=== PATIENT | male | born 1980 | race Hispanic/Latino ===

== ENCOUNTER 2017-08-17 01:14 | Emergency (ER) | payer OTHER ==
[2017-08-17] MEDS ORDERED: HYDROcodone/Acetaminophen 5/325 mg Tablet ONE (02:25)
[2017-08-17] MEDS ORDERED: Dexamethasone 10 MG/ML VIAL ONE (02:25)
== END 2017-08-17 03:00 | disposition home or self-care (01) ==
LOC: ERS 01:14
DX: M10.9 Gout, unspecified (principal); I10 Essential (primary) hypertension; Z79.891 Long term (current) use of opiate analgesic; Z79.899 Other long term (current) drug therapy
CPT/HCPCS: 96372; J1100

== ENCOUNTER 2017-09-05 09:57 | Outpatient (CLI) | payer OTHER ==
--- NOTE | 2017-09-05 12:13 | RAD ---
BARIUM SWALLOW: HISTORY: Dysphagia and gastroesophageal reflux disease. COMPARISON: None. EXPOSURE: Fluoroscopic time 2.9 minutes with 1700.4 mGy per m2. FINDINGS: A double contrast barium swallow was performed. Esophageal motility was normal. No structures were seen. No extrinsic compression on the esophagus was seen. A barium tablet passed without difficulty into the stomach. No gastroesophageal reflux was seen during the examination. IMPRESSION: Unremarkable barium swallow. POS: [facility]
== END 2017-09-05 09:58 | disposition home or self-care (01) ==
LOC: RAD 09:57
PROVIDERS: ATTEND Internal Medicine Gastroenterology
DX: K21.9 Gastro-esophageal reflux disease without esophagitis (principal); E80.4 Gilbert syndrome; R13.10 Dysphagia, unspecified
CPT/HCPCS: 74220

== ENCOUNTER 2018-04-16 09:07 | Outpatient (CLI) | payer BC ==
--- NOTE | 2018-04-16 11:25 | CT ---
CT CHEST WITH IV CONTRAST: HISTORY: Myasthenia gravis. Dysphagia. FINDINGS: No focal parenchymal lung mass, infiltrate, pleural fluid, or mediastinal adenopathy. The visualized portions of the esophagus are unremarkable. No evidence of thymic abnormality. Within the partiall y visualized upper abdomen, multiple cysts involve the partially visualized kidneys. IMPRESSION: 1. No significant abnormalities of the chest demonstrated. 2. Bilateral extensive renal cysts. POS: [facility]
[2018-04-16] MEDS ORDERED: Iopamidol 370 76% 100 ML VIAL ONE (14:48)
== END 2018-04-16 09:08 | disposition home or self-care (01) ==
LOC: CT 09:07
PROVIDERS: ATTEND Psychiatry & Neurology Neurology
DX: G70.00 Myasthenia gravis without (acute) exacerbation (principal); N28.1 Cyst of kidney, acquired
CPT/HCPCS: 36415; 71260; 83516

== ENCOUNTER 2018-10-08 13:40 | Outpatient (CLI) | payer BC ==
--- NOTE | 2018-10-08 15:05 | ULT ---
SCROTAL ULTRASOUND: INDICATIONS: A 38-year-old with testicular pain. COMPARISON: Prior exam dated 10/06/2015. TECHNIQUE: Mata-scale and color Doppler with spectral Doppler images were obtained of the scrotum. FINDINGS: No intratesticular mass or torsion is demonstrated. The right testicle measure 4.9 x 3.4 x 2.6 cm. T he left testicle measures 4.9 x 3.2 x 2.3 cm. There is normal vascular flow to both testicles. Ther e is some old right hydrocele. There is a 2 mm right epididymal head cyst present. A very tiny left hydrocele is present. IMPRESSION: 1. No intratesticular mass or torsion demonstrated. 2. Small, nonspecific bilateral hydroceles, right greater than left. 3. Small right epididymal head cyst. POS: [facility]
--- NOTE | 2018-10-08 15:44 | ULT ---
RENAL ULTRASOUND: 10/08/18 HISTORY: Polycystic kidneys. COMPARISON: 11/12/15 study. Real time imaging of the right and left kidneys were performed. The right kidney measures approximate ly 16 cm in length. The left kidney approximately 18 cm. Innumerable bilateral renal cysts are seen. The cortex of the kidney is somewhat difficult to define but this is of similar appearance to the laverne or exam. Bladder region appears unremarkable. A postvoid residual of 31 mL was obtained. IMPRESSION: Stable appearance to polycystic kidneys. POS: [facility]
== END 2018-10-08 13:41 | disposition home or self-care (01) ==
LOC: BICULT 13:40
PROVIDERS: ATTEND Urology
DX: N50.819 Testicular pain, unspecified (principal); N43.3 Hydrocele, unspecified; N50.3 Cyst of epididymis; Q61.3 Polycystic kidney, unspecified
CPT/HCPCS: 76770; 76870; 81001; 87086; 93976

== ENCOUNTER 2019-03-12 11:10 | Outpatient (CLI) | payer BC ==
--- NOTE | 2019-03-13 15:55 | RAD ---
EXAM: XR Ba Swallow W/Speech Therap PROVIDED CLINICAL HISTORY: Dysphagia, unspecified. Feeding difficulties. Myasthenia gravis without acute exacerbation. Fluoroscopy: Total fluoroscopy time is 14 seconds with total dose of 0.408 milliGy meters squared COMPARISON: None FINDINGS: This examination was performed by speech pathology, and imaging was provided. Patient was administere d varying consistencies of barium during the exam. A mild decrease in formation of the bolus into the posterior pharynx is noted. There are episodes of mild premature spill of contrast into the orr cula prior to initiation of swallowing mechanism. A few episodes of pooling within the vallecula and piriform sinuses was noted but cleared with repeated swallow. No aspiration or penetration was no jonn during the exam. IMPRESSION: No evidence of aspiration or penetration.
== END 2019-03-12 11:11 | disposition home or self-care (01) ==
PROVIDERS: ATTEND Psychiatry & Neurology Neurology
DX: R13.10 Dysphagia, unspecified (principal); G70.00 Myasthenia gravis without (acute) exacerbation
CPT/HCPCS: 74230

== ENCOUNTER 2024-03-18 09:25 | Outpatient (CLI) | payer BC | END 2024-03-18 09:26 | disposition home or self-care (01) | LOC: BICRAD 09:25 | PROVIDERS: ATTEND Internal Medicine Nephrology | DX: T85.691A Other mechanical complication of intraperitoneal dialysis catheter, initial encounter (principal) | CPT/HCPCS: 74018 ==